=== PATIENT | male | born 1975 | race Caucasian/White ===

== ENCOUNTER → 2022-10-17 15:13 | Outpatient (BNVA) | payer OTHER, SELFPAY | PROVIDERS: PCP Internal Medicine; Visit Provider Nurse Practitioner Family | DX: N28.1 Cyst of kidney, acquired (principal) | CPT/HCPCS: 99202 ==

== ENCOUNTER 2023-04-09 10:45 | Outpatient (REF) | payer OTHER, SELFPAY ==
--- NOTE | ~2023-04-09 | US_ITS ---
EXAMINATION: US RETROPERITONEAL LIMITED (RENAL ONLY) CLINICAL INFORMATION: Cyst of kidney, acquired. COMPARISON: Ultrasound retroperitoneal limited (renal only) 09/27/2022. CT abdomen and pelvis without and with contrast 09/21/2022. TECHNIQUE: Real-time imaging of the kidneys. Limited visualization due to bowel gas. FINDINGS: RIGHT KIDNEY: 11.7 x 6.7 x 6.9 cm (SAG x AP x TRV). There is a 0.3 cm right renal lower pole echogenic cortical calcification. Mild fullness right renal pelvis. Renal cortical thickness is normal. Limited visualization. LEFT KIDNEY: 11.6 x 7.5 x 5.4 cm (SAG x AP x TRV). No hydronephrosis. No renal calculi. Renal cortical thickness is normal. Limited visualization. Multiple left renal cysts, largest 1.3 x 1.0 x 1.3 cm exophytic lower pole and, 1.1 x 1.5 x 1.6 cm mid pole parapelvic and 1.1 x 1.5 x 1.2 cm medial midpole with benign features. There is no indication for follow up imaging. US/US renal BI IMPRESSION: 1. A 0.3 cm right renal lower pole echogenic cortical calcification. Mild fullness right renal pelvis. 2. Left renal lower pole 1.3 cm exophytic cyst with benign features. There is no indication for follow up imaging.
== END 2023-04-09 10:46 | disposition home or self-care (01) ==
LOC: HO.US 10:45
PROVIDERS: PCP Internal Medicine; Visit Provider Nurse Practitioner Family
DX: N28.1 Cyst of kidney, acquired (principal)
CPT/HCPCS: 76775

== ENCOUNTER 2023-04-26 13:27 | Outpatient (AMB) | payer OTHER, SELFPAY ==
--- NOTE | 2023-04-26 13:51 | A.OFFVIS_ITS ---
Intake Intake Visit Reasons: 6m/US Intake Note: Patient presents for follow up Renal Cyst/Ultrasound (imaging 04/09/23) Urology Medications: none Blood Thinner: none Flocculator Operator Required: Yes Flocculator Operator Name: ANGELA Accompanied by: Self / Same As Patient Allergies atorvastatin Adverse Reaction (Intermediate, Verified 04/29/23 12:32) myalgia sitagliptin [From Januvia] Adverse Reaction (Intermediate, Verified 04/29/23 12:32) pancreatitis Medication List - Last Reconciled 04/29/23 by YESICA Bolton- amlodipine 10 mg PO DAILY benazepril 40 mg PO DAILY chlorthalidone 25 mg PO DAILY dapagliflozin propanediol (Farxiga) 10 mg PO DAILY insulin glargine (Lantus Solostar U-100 Insulin) 10 units subcut BEDTIME loratadine 10 mg PO DAILY metformin 1,000 mg PO BID pyridoxine (vitamin B6) 100 mg PO DAILY 90 days rosuvastatin 40 mg PO DAILY HPI HPI Comments History of Present Illness Details Woo is a pleasant 47 year old [place] speaking male patient of Dr. Carlos. He has a past medical history of hypercholesteremia, diabetes, depression, sleep apnea, and hypertension. He presents to the office today for follow-up of his left renal cysts. In discussion with the patient today reports to be doing and feeling well. Recent renal imaging results reviewed with the patient today. Right kidney with 0.3 cm right renal lower pole echogenic cortical calcification. Left kidney with no calculi or hydronephrosis noted. Multiple left renal cysts, largest 1.3 x 1.0 x 1.3 cm exophytic lower pole and, 1.1 x 1.5 x 1.6 cm mid pole parapelvic and 1.1 x 1.5 x 1.2 cm medial midpole with benign features. There is no indication for follow up imaging per radiology report. When asked he denies any urological issues or concerns. He denies any changes to his urinary habits. He denies urinary urgency, urinary frequency, incontinence, nocturia, hematuria, dysuria, foul smelling urine, changes to urinary stream, flank pain, fever, and or chills. In office urinalysis results reviewed with the patient today. He otherwise denies any other issues or concerns at this time. [facility] Medical History High cholesterol Diabetes mellitus Depression Sleep apnea HTN (hypertension) Surgical History H/O arthroscopy of right knee History of nasal surgery History of cholecystectomy History of appendectomy Review of Systems Const Reports as per HPI Eyes Reports no additional complaints ENT Reports no additional complaints Card Reports as per HPI Resp Reports as per HPI GI Reports no additional complaints Reports as per HPI Musc Reports no additional complaints Neuro Reports no additional complaints Psych Reports no additional complaints Endo Reports no additional complaints Alex/Lymph Reports no additional complaints Aller/Immun Reports no additional complaints Physical Exam Const General: cooperative, healthy appearing, comfortable, no acute distress, well developed, alert and awake Nutritional Appearance: average body habitus Orientation/consciousness: patient oriented x3 Limitations: no limitations HEENT Head: Yes normal to inspection, Yes normocephalic and Yes atraumatic Ears: hearing grossly normal bilaterally Eyes General: appearance normal, both eyes and all related structures Neck Neck: Yes normal visual inspection and Yes trachea midline Chest Chest palpation & inspection: normal inspection of the chest Resp Effort & Inspection: normal respiratory effort and able to speak in complete sentences Cardio Rate: regular rate GI Inspection: Yes normal to inspection General: Yes no CVA tenderness Back/Spine/Pelvis Back: no CVA tenderness Skin General skin exam: no rashes or lesions noted Neuro General: patient oriented x3 Extrem General: Yes normal to inspection Psych Appearance: grossly normal and well kempt Mental Status: mental status grossly normal Speech and movement: Normal speech and movement present and Clear speech present Affect: normal affect Attitude: cooperative Thought process: Normal thought process present Thought content: Normal thought content present Insight: Good insight present (Psych) Judgement: Good judgement present (Psych) Results AMB Urinalysis, Automated UA Leukoctes 0 Cash/uL Last Edit by Malia Centeno on 04/26/23 14:07 UA Nitrite Last Edit by Malia Centeno on 04/26/23 14:07 UA Urobilinogen 0.2 mg/dL Last Edit by Malia Centeno on 04/26/23 14:07 UA Protein 0 mg/dL Last Edit by Malia Centeno on 04/26/23 14:07 UA pH 5.5 Last Edit by Malia Centeno on 04/26/23 14:07 UA Blood 0 Lupillo/uL Last Edit by Malia Centeno on 04/26/23 14:07 UA Specific [place] 1.015 Last Edit by Malia Centeno on 04/26/23 14:07 UA Ketone Negative Last Edit by Malia Centeno on 04/26/23 14:07 UA Bilirubin 0 mg/dL Last Edit by Malia Centeno on 04/26/23 14:07 UA Glucose 0 mg/dL Last Edit by Malia Centeno on 04/26/23 14:07 Results Reviewed Results Reviewed: Laboratory Last Values Urine pH (Auto) 5.5 04/26/23 13:56 Specific [place] (Auto) 1.015 04/26/23 13:56 Urine Protein (Auto) 0 mg/dL 04/26/23 13:56 Glucose (UA)(Auto) 0 mg/dL 04/26/23 13:56 Urine Ketones (Auto) Negative 04/26/23 13:56 Urine Blood (Auto) 0 Lupillo/uL 04/26/23 13:56 Urine Bilirubin (Auto) 0 mg/dL 04/26/23 13:56 Urine Urobilinogen (Auto) 0.2 mg/dL 04/26/23 13:56 Leukocyte Esterase (Auto) 0 Cash/uL 04/26/23 13:56 Date of Service: 04/09/23 EXAMINATION: US RETROPERITONEAL LIMITED (RENAL ONLY) FINDINGS: RIGHT KIDNEY: 11.7 x 6.7 x 6.9 cm (SAG x AP x TRV). There is a 0.3 cm right renal lower pole echogenic cortical calcification. Mild fullness right renal pelvis. Renal cortical thickness is normal. Limited visualization. LEFT KIDNEY: 11.6 x 7.5 x 5.4 cm (SAG x AP x TRV). No hydronephrosis. No renal calculi. Renal cortical thickness is normal. Limited visualization. Multiple left renal cysts, largest 1.3 x 1.0 x 1.3 cm exophytic lower pole and, 1.1 x 1.5 x 1.6 cm mid pole parapelvic and 1.1 x 1.5 x 1.2 cm medial midpole with benign features. There is no indication for follow up imaging. IMPRESSION: 1. A 0.3 cm right renal lower pole echogenic cortical calcification. Mild fullness right renal pelvis. 2. Left renal lower pole 1.3 cm exophytic cyst with benign features. There is no indication for follow up imaging. Assessment & Plan Assessment & Plan (1) Renal cyst: Code(s): N28.1 - Cyst of kidney, acquired (2) Nephrolithiasis: Code(s): N20.0 - Calculus of kidney Plan In office urinalysis results reviewed with the patient today; as noted above. Recent renal imaging results reviewed with the patient today; as noted above. Discussed at length potential causes for renal calculi as well as renal cyst. Discussed, educated, encouraged on the importance of drinking plenty of water daily. Discussed adding 1 oz of lemon juice to water daily. Patient denies any bothersome urinary issues or concerns at this time. He is happy with his current voiding parameters. Will continue with interval surveillance monitoring Start vitamin B6 as discussed and prescribed. Renal ultrasound in 1 year. Follow-up in 1 year with imaging to be completed prior; or sooner with any issues, concerns, and or questions. Orders: Orders AMB Urinalysis Automated 04/26/23 Z13.9 - Encounter for screening, unspecified US renal BI 364 Days N20.0 - Calculus of kidney Medications: New pyridoxine (vitamin B6) 100 mg PO DAILY 90 days 90 tabs 3RF N20.0 - Calculus of kidney Patient Instructions: The patient had an opportunity to ask questions regarding the treatment plan. All questions were answered. Physical exam, labs, and imaging were discussed and reviewed in detail. As well as risks, benefits, and discussion of treatment ch oices. No major barriers to understanding were identified. The patient expressed understanding and agreement with the above treatment plan. The patient was made aware they should contact our office by phone for worsening of their current condition, the appearance of new symptoms, or with any questions or concerns. Compliance is encouraged with any medications and follow up testing that is ordered. It is a privilege to be allowed the opportunity to participate in? your urological care.? Again, if you have any questions or concerns If you have any questions or concerns please do not hesitate to contact me. The office is [phone]. This note is constructed using voice recognition software. While every effort has been made to ensure accuracy drilling foreman errors may have been included. Yours sincerely, YESICA Bolton- Coding Level of Care Code Est Pt Level 4 (16967) Diagnoses Renal cyst N28.1 Nephrolithiasis N20.0
== END 2023-04-26 14:19 | disposition home or self-care (01) ==
PROVIDERS: PCP Internal Medicine; Visit Provider Nurse Practitioner Family
DX: N28.1 Cyst of kidney, acquired (principal); N20.0 Calculus of kidney
CPT/HCPCS: 99214

== ENCOUNTER → 2023-04-26 13:27 | Outpatient (BNVA) | payer OTHER, SELFPAY | PROVIDERS: Visit Provider Nurse Practitioner Family | DX: N28.1 Cyst of kidney, acquired (principal); N20.0 Calculus of kidney | CPT/HCPCS: 81003; 99212 ==